=== PATIENT | female | born 1955 | race Caucasian/White ===

== ENCOUNTER 2025-04-24 15:49 | Outpatient (CLI) | payer MEDICARE, MEDICAID ==
[2025-04-24 16:54] LABS: #Basophils Less than 0.03 10x3/uL (0.0-0.2); #Eosinophils 1.85 10x3/uL (0.0-0.7); #Monocytes 0.54 10x3/uL (0.11-0.59); #Neutrophils 7.89 10x3/uL (1.40-6.50); %Basophils 0.2 % (0.0-1.0); %Eosinophils 14.1 % (0.0-10.0); %Lymphocytes 21.0 % (21.0-51.0); %Monocytes 4.1 % (0.0-10.0); %Neutrophils 60.1 % (42.0-75.0); Hematocrit 45.9 % (36.0-47.0); Hemoglobin 14.5 g/dL (12.0-16.0); Mean Corpuscular Hemoglobin 30.5 pg (27.0-31.0); Mean Corpuscular Volume 96.4 fL (78.0-98.0); Platelet Count 267 10x3/uL (130-400); Red Blood Cell (RBC) Count 4.76 mill/uL (4.20-5.40); White Blood Cell (WBC) Count 13.12 10x3/uL (4.8-10.8)
[2025-04-24 17:15] LABS: ALT (SGPT) 14 U/L (Less than 34); AST (SGOT) 21 U/L (11-34); Albumin 3.3 g/dL (3.1-4.5); Alkaline Phosphatase 123 U/L (40-110); Anion Gap 16 mmol/L (10-20); BUN (Urea Nitrogen) 18 mg/dL (9.8-20.1); Bilirubin, Total 0.2 mg/dL (0.3-1.2); Calc. Creatinine Clearance 0 mL/min (70-130); Calcium 9.5 mg/dL (7.8-10.44); Carbon Dioxide 26 mmol/L (23-31); Chloride 107 mmol/L (98-107); Globulin 4.1 g/dL (2.4-3.5); Glucose 171 mg/dL (80-115); INR-International Normal Ratio 1.0; PTT 31.3 sec (22.9-36.1); Potassium 5.1 mmol/L (3.5-5.1); Prothrombin Time 13.5 sec (12.0-14.7); Sodium 144 mmol/L (136-145)
== END 2025-04-24 15:50 | disposition home or self-care (01) ==
LOC: LABBT 15:49
PROVIDERS: ATTEND Student in an Organized Health Care Education/Training Program
DX: Z01.812 Encounter for preprocedural laboratory examination (principal); S21.109A Unspecified open wound of unspecified front wall of thorax without penetration into thoracic cavity, initial encounter
CPT/HCPCS: 80053; 83036; 85025; 85610; 85730; 86850; 86900; 86901; 87077; 87086